=== PATIENT | female | born 1950 | race Caucasian/White ===

== ENCOUNTER 2019-06-30 14:14 | Observation (INO) | payer OTHER ==
[~2019-06-30] VITALS: Ht 165.1 cm; Wt 58.5 kg
[~2019-06-30 14:14] MED LIST: CEPH500 PO; HYDR1TAB94 PO; METTREX2.5 PO; PRED1 PO; Ultram50 MG PO; Valium5 MG PO
[2019-06-30 14:50] LABS: BASOPHILS ABSOLUTE AUTO 0.02 K/mm3 (0.00-0.23); BASOPHILS PERCENT AUTO 0 % (0-2); EOSINOPHILS PERCENT AUTO 1 % (0-6); Hematocrit 41.3 % (33.0-51.0); IMMATURE GRAN ABSOLUTE AUTO 0.03 K/mm3 (0.00-0.10); IMMATURE GRAN PERCENT AUTO 0 % (0-1); LYMPHOCYTES ABSOLUTE AUTO 1.18 K/mm3 (0.84-5.20); LYMPHOCYTES PERCENT AUTO 14 % (21-46); MONOCYTES ABSOLUTE AUTO 0.45 K/mm3 (0.16-1.47); MONOCYTES PERCENT AUTO 5 % (4-13); Mean Corpuscular HGB Conc 31.5 g/dL (31.5-36.5); Mean Corpuscular Volume 95 fL (80-100); NEUTROPHILS ABSOLUTE AUTO 6.95 K/mm3 (1.96-9.15); NEUTROPHILS PERCENT AUTO 80 % (41-73); Platelet Count 342 K/mm3 (150-400); RDW Coefficient Variation 14.7 % (11.7-14.2); RDW Standard Deviation 51.6 fL (35.1-46.3); Red Blood Cell Count 4.33 M/mm3 (3.80-5.20); White Blood Cell Count 8.73 K/mm3 (4.00-11.30)
[2019-06-30 15:16] LABS: Alanine Aminotransfer (ALT/SGP 43 U/L (12-78); Albumin, Blood 3.2 g/dL (3.4-5.0); Albumin/Globulin Ratio 0.9 (0.8-1.8); Alk Phos 137 U/L (50-136); Anion Gap 5 mmol/L (6-16); Aspartate Aminotrans (AST/SGOT 32 U/L (12-37); Bilirubin, Total 0.5 mg/dL (0.1-1.0); Blood Urea Nitrogen 18 mg/dL (8-24); Bun/Creatinine Ratio 28.3 (12.0-20.0); CO2, Blood 23 mmol/L (21-32); Calcium, Blood 8.9 mg/dL (8.5-10.1); Chloride, Blood 111 mmol/L (98-108); Creatinine, Blood 0.64 mg/dL (0.40-1.00); Globulin, Blood 3.7 g/dL (2.2-4.0); Glomerular Filtration Rate >60 (60-); Glucose, Blood 107 mg/dL (70-99); Potassium, Blood 3.9 mmol/L (3.5-5.5); Sodium, Blood 139 mmol/L (136-145); Total Protein, Blood 6.9 g/dL (6.4-8.2); Troponin I 0.022 ng/mL (0.000-0.040)
--- NOTE | 2019-06-30 20:57 | NUR ---
PATIENT BEING ADMITTED FOR DYSPNEA AND CHF. SHE ARRIVED TO THE FLOOR VIA WC, WAS ABLE TO TRANSFER SELF INDEPENDENTLY TO THE BED. DENIES ANY PAIN OR DISCOMFORT. LUNG SOUNDS ARE CLEAR THROUGHOUT, TRACE EDEMA NOTED TO BLE. SHE IS AOX3 PLEASANT AND COOPERATIVE. HR REGULAR, NO CHEST PAIN OR PALPITATIONS NOTED. SETTLED THE PATIENT IN ROOM, CALL LIGHT GIVEN. ADMISSION COMPLETED. WILL CONTINUE TO MONITOR.
--- NOTE | 2019-07-01 01:35 | NUR ---
PATIENT IS UP WALKING AROUND STATES SHE CAN NOT GO BACK TO SLEEP. DR. JIANG CALLED AND ORDER FOR MELATONIN RECEIVED.
--- NOTE | 2019-07-01 01:45 | NUR ---
PATIENT WAS UP AND WENT FOR A WALK AROUND THE HOSPITAL. THINK SHE HEADED DOWN TO THE 2ND FLOOR. WHEN SHE GOT BACK ENCOURAGED HER TO STAY ON THE 3RD FLOOR DUE TO TELEMETRY HAVING TROUBLE WITH READINGS. SHE AGREED.
[2019-07-01 06:03] LABS: Anion Gap 8 mmol/L (6-16); Blood Urea Nitrogen 17 mg/dL (8-24); Bun/Creatinine Ratio 21.5 (12.0-20.0); CO2, Blood 25 mmol/L (21-32); Chloride, Blood 107 mmol/L (98-108); Creatinine, Blood 0.79 mg/dL (0.40-1.00); Glomerular Filtration Rate >60 (60-); Glucose, Blood 96 mg/dL (70-99); Potassium, Blood 3.7 mmol/L (3.5-5.5); Sodium, Blood 140 mmol/L (136-145)
--- NOTE | 2019-07-01 06:19 | NUR ---
SHIFT SUMMARY: JON WAS ADMITTED LAST NIGHT FOR NEW DX OF CHF WITH DYSPNEA. SHE HAS HAD INCREASE IN SOB FOR SEVERAL DAYS. HER BNP WAS 1409 ON ADMISSION. SHE WAS GIVEN LASIX IN THE ER AT WHICH SHE VOIDED SEVERAL TIMES. SHE IS AOX3 INDEPENDENT IN THE ROOM. SHE WENT FOR 2 WALKS LAST NIGHT, GAIT WAS STEADY. TELEMETRY REPORTS ARE SINUS RYTHEM. VS HAVE REMAINED STABLE. SHE DENIED FLU AND LOVENOX SHOTS. NO PAIN NOTED. DID CALL FOR ORDER ON SLEEPING MED. THIS WAS GIVEN. SHE GOT SOME SLEEP THIS SHIFT. LUNGS ARE CLEAR THROUGHOUT. MILD EDEMA TO LEGS. NO OTHER CHANGES TO REPORT.
--- NOTE | 2019-07-01 11:30 | NUR ---
PATIENT COMPLAINED OF FEELING IF "EVERYTHING IS FAR AWAY". SHE DENIED DIZZINESS. PATIENT IS NOTICEABLEY UNSTEADY ON HER FEET. SHE IS ALERT AND ORIENTED. ISTRATE NOTIFIED OF THIS CHANGE. ORDERED 250ML BOLUS. WILL CONTINUE TO MONITOR
--- NOTE | 2019-07-01 11:32 | NUR ---
BLOOD PRESSURE CHECKED AT THE TIME OF THE PATIENT'S COMPLAINT. ORTHOSTATIC BLOOD PRESSURES WNL.
--- NOTE | 2019-07-01 11:51 | NUR ---
PATIENT STATES SHE HAS AN ALLERGY TO ASPIRIN. SHE STATES IN THE YEAR 1972 SHE TOOK AN ASPIRIN AND SHE WAS SENT TO THE HOSPITAL WITH THE SAME SIDE EFFECTS SHE HAS EXPERIENCED TODAY. THIS MORNING WHILE TAKING HER MORNING MEDICATIONS, PATIENT STATED SHE TAKES A BABY ASPIRIN AT HOME EVERY MONRING. SHE WAS CONFUSED AT THIS TIME MISTAKING ASPIRIN FOR ALEVE, SHE TAKES ALEVE AT HOME. 25O ML BOLUS STARTED ON PATIENT. A FRIEND OF THE PATIENT IS AT THE BEDSIDE. WILL CONTINUE TO MONITOR
--- NOTE | 2019-07-01 17:35 | NUR ---
PATIENT IS ALERT AND ORIENTED AND COOPERATIVE WITH CARE. SHE REPORTED AN ALLERGY TO ASPIRIN TODAY. SHE COMPLAINS OF SOB AND A FEELING OF "HEAVINESS". SHE SLEPT FOR A FEW HOURS THIS AFTERNOON. SHE IS INDEPENDENT TO THE BATHROOM. WILL CONTINUE TO MONITOR
--- NOTE | 2019-07-02 04:51 | NUR ---
SUMMARY NO ISSUES NOTED. PT SLEPT WELL T/O SHIFT. PT EAGER TO GET HOME. PT CURRENTLY SLEEPING AND BREATHING EASY. CALL IGHT IN [facility]
[2019-07-02 05:06] LABS: Albumin, Blood 2.8 g/dL (3.4-5.0); Anion Gap 6 mmol/L (6-16); Blood Urea Nitrogen 23 mg/dL (8-24); Bun/Creatinine Ratio 25.4 (12.0-20.0); CO2, Blood 28 mmol/L (21-32); Chloride, Blood 107 mmol/L (98-108); Glomerular Filtration Rate >60 (60-); Glucose, Blood 97 mg/dL (70-99); Phosphorus, Blood 4.6 mg/dL (2.5-4.9); Potassium, Blood 3.6 mmol/L (3.5-5.5); Sodium, Blood 141 mmol/L (136-145)
[2019-07-02] MEDS ORDERED: ACET325 PO (09:50)
[2019-07-02] MEDS ORDERED: ATEN25 PO (09:51)
[2019-07-02] MEDS ORDERED: Lisinopril2.5 MG PO (09:51)
[2019-07-02] MEDS ORDERED: FURO20 PO (09:51)
[2019-07-02] MEDS ORDERED: SPIR25 PO (09:52)
== END 2019-07-02 11:11 | disposition home or self-care (01) ==
LOC: ER 14:14 → ERHOLD 14:15 → MEDS 20:49
PROVIDERS: Family Medicine; Physician Assistant; ADMIT Hospitalist
DX: R06.02 Shortness of breath (principal); F17.210 Nicotine dependence, cigarettes, uncomplicated; M31.6 Other giant cell arteritis; R01.1 Cardiac murmur, unspecified; E87.70 Fluid overload, unspecified; S22.060A Wedge compression fracture of T7-T8 vertebra, initial encounter for closed fracture; Z88.6 Allergy status to analgesic agent; Z88.5 Allergy status to narcotic agent; Z88.8 Allergy status to other drugs, medicaments and biological substances; Z79.899 Other long term (current) drug therapy
CPT/HCPCS: 36415; 71046; 71250; 80048; 80053; 80069; 83880; 84443; 84484; 85025; 85651; 93005; 93010; 93306; 94761; 96361; 96374; 96376; 99285-25; A9270-GY; G0378; J1940; J7050

== ENCOUNTER → 2021-03-24 | Outpatient (CLI) | payer OTHER ==
[~2021-03-24] MED LIST changes: +ACET325 PO; +ATEN25 PO; +FURO20 PO; +Lisinopril2.5 MG PO; +SPIR25 PO
[2021-03-24 13:41] LABS: BASOPHILS ABSOLUTE AUTO 0.09 K/mm3 (0.00-0.23); BASOPHILS PERCENT AUTO 1 % (0-2); EOSINOPHILS ABSOLUTE AUTO 0.45 K/mm3 (0.00-0.68); EOSINOPHILS PERCENT AUTO 6 % (0-6); Hematocrit 40.1 % (33.0-51.0); Hemoglobin 13.2 g/dL (11.5-16.0); IMMATURE GRAN ABSOLUTE AUTO 0.03 K/mm3 (0.00-0.10); IMMATURE GRAN PERCENT AUTO 0 % (0-1); LYMPHOCYTES ABSOLUTE AUTO 2.66 K/mm3 (0.84-5.20); LYMPHOCYTES PERCENT AUTO 34 % (21-46); MONOCYTES ABSOLUTE AUTO 0.72 K/mm3 (0.16-1.47); MONOCYTES PERCENT AUTO 9 % (4-13); Mean Corpuscular HGB 31.5 pg (26.0-34.0); Mean Corpuscular HGB Conc 32.9 g/dL (31.5-36.5); Mean Corpuscular Volume 96 fL (80-100); Mean Platelet Volume 10.2 fL (9.1-12.4); NEUTROPHILS PERCENT AUTO 49 % (41-73); Platelet Count 380 K/mm3 (150-400); RDW Coefficient Variation 13.3 % (11.7-14.2); Red Blood Cell Count 4.19 M/mm3 (3.80-5.20); White Blood Cell Count 7.75 K/mm3 (4.00-11.30)
== END | disposition home or self-care (01) ==
LOC: LAB SHORT 08:30 → LAB 08:30
PROVIDERS: Internal Medicine Rheumatology
DX: M31.6 Other giant cell arteritis (principal)
CPT/HCPCS: 84450; 85025; 85651

== ENCOUNTER → 2021-08-10 | Outpatient (CLI) | payer OTHER ==
[2021-08-10 13:57] LABS: BASOPHILS ABSOLUTE AUTO 0.06 K/mm3 (0.00-0.23); BASOPHILS PERCENT AUTO 1 % (0-2); EOSINOPHILS ABSOLUTE AUTO 0.45 K/mm3 (0.00-0.68); EOSINOPHILS PERCENT AUTO 4 % (0-6); Hematocrit 42.3 % (33.0-51.0); Hemoglobin 13.9 g/dL (11.5-16.0); IMMATURE GRAN ABSOLUTE AUTO 0.04 K/mm3 (0.00-0.10); IMMATURE GRAN PERCENT AUTO 0 % (0-1); LYMPHOCYTES ABSOLUTE AUTO 2.45 K/mm3 (0.84-5.20); LYMPHOCYTES PERCENT AUTO 19 % (21-46); MONOCYTES ABSOLUTE AUTO 0.61 K/mm3 (0.16-1.47); MONOCYTES PERCENT AUTO 5 % (4-13); Mean Corpuscular HGB 30.2 pg (26.0-34.0); Mean Corpuscular HGB Conc 32.9 g/dL (31.5-36.5); Mean Corpuscular Volume 92 fL (80-100); Mean Platelet Volume 10.2 fL (9.1-12.4); NEUTROPHILS PERCENT AUTO 72 % (41-73); Platelet Count 394 K/mm3 (150-400); RDW Coefficient Variation 14.3 % (11.7-14.2); RDW Standard Deviation 47.7 fL (35.1-46.3); White Blood Cell Count 12.81 K/mm3 (4.00-11.30)
== END ==
LOC: LAB SHORT 13:49
PROVIDERS: Internal Medicine Rheumatology
DX: M31.6 Other giant cell arteritis (principal)
CPT/HCPCS: 84450; 85025; 85651

== ENCOUNTER → 2021-10-17 | Outpatient (CLI) | payer OTHER ==
[2021-10-17 14:16] LABS: Alanine Aminotransfer (ALT/SGP 30 U/L (12-78); Albumin, Blood 3.6 g/dL (3.4-5.0); Alk Phos 109 U/L (50-136); Anion Gap 7 mmol/L (6-16); Aspartate Aminotrans (AST/SGOT 23 U/L (12-37); Bilirubin, Total 0.3 mg/dL (0.1-1.0); Blood Urea Nitrogen 27 mg/dL (8-24); Bun/Creatinine Ratio 27.6 (12.0-20.0); CO2, Blood 27 mmol/L (21-32); Calcium, Blood 9.5 mg/dL (8.5-10.1); Chloride, Blood 107 mmol/L (98-108); Cholesterol 236 mg/dL (50-200); Creatinine, Blood 0.98 mg/dL (0.40-1.00); Globulin, Blood 3.5 g/dL (2.2-4.0); Glomerular Filtration Rate 62 (60-); Glucose, Blood 90 mg/dL (70-99); HDL Cholesterol 59 mg/dL (>39); LDL/HDL RATIO 2.6; Low Density Lipoprotein Chol 154 mg/dL (0-110); Potassium, Blood 4.1 mmol/L (3.5-5.5); Sodium, Blood 141 mmol/L (136-145); Total Protein, Blood 7.1 g/dL (6.4-8.2); Triglycerides 114 mg/dL (30-160); Very Low Density Lipoprot Chol 22 mg/dL (6-32)
== END | disposition home or self-care (01) ==
LOC: LAB 12:07 → LAB SHORT 12:07
PROVIDERS: Nurse Practitioner
DX: Z11.59 Encounter for screening for other viral diseases (principal); I50.9 Heart failure, unspecified; E78.2 Mixed hyperlipidemia; R20.2 Paresthesia of skin
CPT/HCPCS: 80053; 80061; 83036; 86803